=== PATIENT | male | born 1980 | race Two or more races ===

== ENCOUNTER 2022-06-22 18:23 | Emergency (ER) | payer OTHER ==
[~2022-06-22] VITALS: Ht 177.8 cm; Wt 114.3 kg
[2022-06-22 18:30] VITALS: BP 162/64
== END 2022-06-22 19:51 | disposition home or self-care (01) ==
LOC: ER 18:34
DX: T14.8XXA Other injury of unspecified body region, initial encounter (principal); I10 Essential (primary) hypertension; W54.0XXA Bitten by dog, initial encounter; Y93.89 Activity, other specified; Y92.89 Other specified places as the place of occurrence of the external cause; Y99.8 Other external cause status